=== PATIENT | male | born 1975 | race Caucasian/White ===

== ENCOUNTER 2019-03-15 21:33 | Inpatient (IN) ==
[2019-03-15] MEDS ORDERED: DUONEB (A & A) INH ONE (21:56)
[2019-03-15] MEDS ORDERED: NS 1,000 ML IV ONE ×2 (21:56→23:35)
[2019-03-15] MEDS ORDERED: DECADRON IM ONE (21:56)
[2019-03-15 22:08] LABS: INFLUENZA A NEGATIVE (NEGATIVE); INFLUENZA B NEGATIVE (NEGATIVE)
[2019-03-15 22:31] LABS: BASO# 0.07 X1000 (0.0-0.2); BASO% 0.8 % (0.0-0.8); EOS# 0.14 X1000 (0.0-0.7); EOS% 1.5 % (0.0-10.0); HEMATOCRIT 43.7 % (42.0-52.0); HEMOGLOBIN 14.8 g/dL (14.0-18.0); IMM GRAN# 0.02 X1000 (0.0-0.04); IMM GRAN% 0.2 % (0.0-0.5); LYMPH# 2.64 X1000 (1.2-3.4); LYMPH% 29.2 % (20.5-51.1); MCH 27.2 PG (27-31); MCHC 33.9 g/dL (33-37); MCV 80.2 FL (81-99); MONO# 0.99 X1000 (0.11-0.59); MONO% 10.9 % (1.7-9.3); MPV 10.4 FL (7.4-10.4); NEUT# 5.19 X1000 (1.4-6.5); NEUT% 57.4 % (42.2-75.2); PLT 448 X1000 (130-400); RBC 5.45 XMIL (4.7-6.1); RDW 12.4 % (11.5-14.5); WBC 9.05 X1000 (4.8-10.8)
[2019-03-15 22:41] LABS: ESTIMATED GFR > 60
[2019-03-15 22:45] LABS: AGAP 18; ALBUMIN 4.1 g/dL (3.5-5.0); ALKALINE PHOSPHATASE 122 U/L (32-122); BUN 9 mg/dL (8-22); CALCIUM 10.1 mg/dL (8.8-10.2); CHLORIDE 86 mmol/L (98-107); COSMO 287; CREATININE 0.8 mg/dL (0.7-1.2); GOT 15 U/L (10-34); GPT 17 U/L (10-44); POTASSIUM 4.6 mmol/L (3.5-5.1); SODIUM 127 mmol/L (136-145); TCO2 23 mmol/L (25-35); TOTAL PROTEIN 8.2 g/dL (6.3-8.3)
[2019-03-15 22:58] LABS: GLUCOSE 703 mg/dL (70-104)
[2019-03-15] MEDS ORDERED: ZOFRAN IV PRN (23:35)
[2019-03-15] MEDS ORDERED: TYLENOL PO PRN (23:35)
[2019-03-15] MEDS ORDERED: TORADOL IV PRN (23:35)
[2019-03-15 23:45] LABS: URINE SOURCE CLEAN CATCH
[2019-03-15 23:49] LABS: BILIRUBIN URINE NEGATIVE (NEGATIVE); BLOOD URINE NEGATIVE (NEGATIVE); COLOR STRAW; GLUCOSE URINE >1000 mg/dL (NEGATIVE); KETONE URINE NEGATIVE (NEGATIVE); LEUKOCYTES URINE NEGATIVE (NEGATIVE); NITRITE URINE NEGATIVE (NEGATIVE); PROTEIN URINE NEGATIVE (NEGATIVE); SP GRAVITY URINE 1.033; TURBIDITY URINE CLEAR (CLEAR); UROBILINOGEN URINE NORMAL (NORMAL)
[2019-03-15 23:50] LABS: UR EPITHELIAL CELLS <10 /HPF (<10); URINE BACTERIA NEGATIVE /HPF; URINE RBC <10 /HPF (<10); URINE WBC <10 /HPF (<10)
[2019-03-16] MEDS: HUMULIN R (PARKWAY) 100 UNITS in NS 100 ML IV SCH ×4 (00:06→02:33)
--- NOTE | 2019-03-16 00:11 | PROVIDER DOCUMENTATION ---
This chart was entered by Stephanie Adams Scribe, acting as scribe for Avery Fox MD. HPI-General Adult - General Chief Complaint: Cold Symptoms Stated Complaint: FLU LIKE SYMPTOMS Time Seen by Provider: 03/15/19 21:42 Source: patient Allergies/Adverse Reactions: Patient Allergies Allergy/AdvReac Type Severity Reaction Status Date / Time meperidine HCl * Allergy Mild ITCHING Verified 03/15/19 21:40 [From Demerol] promethazine HCl * Allergy Mild ITCHING Verified 03/15/19 21:40 [From Phenergan] Home Medications: Home Medication List Medication Instructions Recorded Confirmed Last Taken Type Sertraline [Zoloft] 100 mg PO DAILY 06/30/13 01/15/18 01/16/18 History Atorvastatin Calcium 40 mg PO QHS 12/18/17 01/15/18 01/16/18 History Bupropion HCl [Bupropion HCl Sr] 150 mg PO DAILY 12/18/17 01/15/18 01/16/18 History Ergocalciferol (Vitamin D2) 50,000 unit PO Q7D 12/18/17 01/15/18 01/16/18 History [Vitamin D2] Gabapentin 800 mg PO TID@0900,1500,2100 12/18/17 01/15/18 01/16/18 History Icosapent Ethyl [Vascepa] 2 g PO BID CC 12/18/17 01/15/18 01/16/18 History Pantoprazole Sodium 40 mg PO DAILY@0700 12/18/17 01/15/18 01/16/18 History Insulin Glargine [Basaglar] 50 unit SUBQ BID #1 insuln.pen 12/21/17 01/15/18 01/16/18 Rx Insulin Regular, Human [Humulin R] 0 unit SQ DIRECTED 01/15/18 01/15/1802/23 History Metformin HCl 2 tab PO BID 01/15/18 01/15/18 01/16/18 History Testosterone Enanthate 200 mg IM Q7D 01/15/18 01/15/18 01/16/18 History Docusate Sodium [Colace] 100 mg PO BID #30 capsule 01/17/18 Unknown Rx Hydrocodone/Acetaminophen [[place] 1 each PO Q6H PRN #20 tablet 01/17/18 Unknown Rx 7.5-325 Tablet] Ondansetron HCl [Zofran] 4 mg PO Q4H PRN #10 tablet 01/17/18 Unknown Rx - History of Present Illness -Gen Adult Nature of Presenting Problems: Pt is a 43 yom who presents to the ED w/ URI symptoms. Pt states that his sym ptoms began 1mo ago. Pt reports cough, sinus congestion w/ headache, and generalized weakness. Pt reports diabetes and states that he stopped visiting his PCP 6 months ago. Pt occasionally takes his insulin or checks his sugar. Pt states that his sugar was 300-400 last time he checked it(a month ago). Pt denies any other symptoms. Location of Pain/Injury: reports: head (sinus pressure), generalized (weakness) Pain Radiation: reports: no radiation Quality of Pain: reports: aching Severity: reports: mild Onset/Duration: reports: other (1 mo ago) Timing: reports: still present Context/Activities at Onset: reports: none Modifying Factors: improves with: nothing Associated Symptoms: reports: cough, headaches, sinus congestion/drainage, weakness Similar Symptoms Previously?: No Recently seen or treated by another doctor?: No - Diabetes Related Context Context: reports: other (blood sugar was 300-400 last time pt checked.) Review of Systems - Adult - REVIEW OF SYSTEMS - ADULT Constitutional: reports: see HPI Eyes: reports: no symptoms reported Ears, Nose, Mouth & Throat: reports: see HPI, sinus problem, other (congestion) Cardiovascular: reports: no symptoms reported Respiratory: reports: cough Gastrointestinal: reports: no symptoms reported Genitourinary: reports: no symptoms reported Musculoskeletal: reports: no symptoms reported Integumentary: reports: no symptoms reported Neurological: reports: see HPI, headache/migraines Psychiatric: reports: no symptoms reported Endocrine: reports: no symptoms reported Hematologic/Lymphatic: reports: no symptoms reported Allergic/Immunologic: reports: no symptoms reported All Other Systems: Reviewed and Negative Past History - Adult - PAST MEDICAL HISTORY-ADULT Review of Records: reports: Old Records Reviewed, Nursing Assessment Review, Medications Reviewed, Social history reviewed & non-contributory. Major Childhood Illnesses: reports: denies history Cardiovascular: reports: HTN, hyperlipidemia Respiratory: reports: denies history Gastrointestinal: reports: denies history Obstetrical/Gynecological: reports: denies history Genitourinary: reports: denies history Musculoskeletal: reports: chronic pain, neck/back injury Neurological: reports: denies history Psychiatric: reports: anxiety Endocrine/Immune: reports: Diabetes Diabetes Type: Type 2 Diabetes controlled by:: Insulin Dependent Other Conditions: reports: denies history - PRIOR SURGERIES/PROCEDURES Surgical/Procedure History: reports: reviewed, not pertinent - IMMUNIZATION STATUS Childhood Immunizations: See Nurse Assessment Flu Vaccine: See Nurse Assessment - FAMILY HISTORY Family History: reviewed, not pertinent - SOCIAL HISTORY Smoking: cigarettes, greater than 1 pack/day Provider spent 3-5 mins advising pt. on dangers of tobacco.: Discussed manners to quit use, and f/u contacts for add'l counseling. Substance Use: denies Living Situation: family Physical Exam-General - PHYSICAL EXAM-ADULT Initial Vital Signs Reviewed: Yes - CONSTITUTIONAL General Appearance: alert - EYES Eyes: PERRL/EOMI, pink conjunctivae. negative: sclera injected, scleral icterus - HEAD, EARS, NOSE, MOUTH & THROAT HENMT: normocephalic/atraumatic, moist mucous membranes - NECK Neck: non-tender, full range of motion, supple, normal inspection - RESPIRATORY Respiratory: chest non-tender, lungs clear, normal breath sounds. negative: crackles, wheezing - CARDIOVASCULAR Cardiovascular: normal peripheral pulses, regular rate, rhythm, no edema, no gallop, no JVD, no murmur. negative: bradycardia, tachycardia - GASTROINTESTINAL (ABDOMEN) Abdominal Exam: normal bowel sounds, non tender, soft. negative: guarding, rebound, tenderness - LYMPHATIC Lymphatic: no adenopathy - MUSCULOSKELETAL Back Exam: normal inspection, no CVA tenderness, no vertebral tenderness Extremity: normal range of motion, non-tender, normal inspection - SKIN Integumentary: normal color, normal turgor, warm/dry. negative: ecchymosis, erythema - NEUROLOGIC Neurologic: grossly normal - PSYCHIATRIC Psych/Mental Status: normal mood/affect, normal thought content, normal thought process, oriented x 3 Progress - PLAN OF CARE/RESULTS Progress/Plan/Lab Results: Vital Signs - 8 hr 03/15/19 21:36 Temperature 98.3 F Pulse Rate 118 H Respiratory Rate 18 Blood Pressure 148/93 O2 Sat by Pulse Oximetry 99 Orders Category Date Time Status CHEST-2 VIEWS [RAD] Stat Exams 03/15/19 21:50 Ordered CBC WITH ELECTRONIC DIFF [HEME] Stat Lab 03/15/19 21:47 Uncollected COMPREHENSIVE METABOLIC PANEL [CHEM] Stat Lab 03/15/19 21:[address] Stat Lab 03/15/19 21:40 Received Result Diagrams: 03/15/19 21:57 03/15/19 21:57 - CONSULTS/PCP/HOSPITALIST Notification #1 *Consult/PCP/Hospitalist*: Dr. Gee Hospitalist Time Discussed: 23:35 Reason/Comments: Discussed [place] [facility] [place] [facility] [place] Consult Disposition: Admit (Dr. Gee accepted admission) Departure - Departure Date of Disposition Decision: 03/16/19 Time of Disposition Decision: 00:10 DIAGNOSIS: DKA (diabetic ketoacidoses) Qualifiers: Diabetes mellitus type: type 2 Diabetes mellitus complication detail: without coma Qualified Code(s): E11.10 - Type 2 diabetes mellitus with ketoacidosis without coma Disposition: ADMITTED INPATIENT 09 Certified Medical Emergency: Emergent Condition: Critical Referrals and Follow-Ups: None,PCP [Primary Care Provider] - - Critical Care Note This patient required my direct & personal management of CC.: Yes Total Time (mins): 38 Critical Care Statement: This patient required my direct personal management to treat or rule out processes, the absence of which, could potentiallly result in sudden, clinically significant life or limb threatening deterioration. Attestation - Physician/ MARI Attestation Patient care was provided by Advanced Practice Provider:: No The physician spent face to face time with patient:: Yes Advanced Practice Provider documentation review:: Supervising physician onsite and consulted in the evaluation and care of this patient. The physician did have a face to face encounter with the patient. This chart was documented by the indicated scribe, (Stephanie Adams Scribe) and accurately reflects the services I performed and decisions made by me, Avery Fox MD, as attested by the provider's signature.
[2019-03-16 00:25] LABS: PH URINE 6.5
[2019-03-16] MEDS: MORPHINE IV PRN ×2 (00:27→05:05)
[2019-03-16 01:23] LABS: HEMOGLOBIN A1C 13.5 % (4.8-6.0)
[2019-03-16 01:48] LABS: AGAP 17; CHLORIDE 95 mmol/L (98-107); POTASSIUM 4.3 mmol/L (3.5-5.1); SODIUM 134 mmol/L (136-145); TCO2 22 mmol/L (25-35)
[2019-03-16] MEDS ORDERED: D5 1/2 NS 1,000 ML IV SCH (02:30)
[2019-03-16] MEDS ORDERED: MAGNESIUM SULFATE 2 GM/S.W.I. 2 GM/50 ML IVPB IV PRN (02:34)
[2019-03-16] MEDS ORDERED: HUMULIN R 100 UNIT in NS 100 ML IV SCH (02:34)
[2019-03-16] MEDS ORDERED: POTASSIUM CHLORIDE 40 MEQ/SWI 40 MEQ/100 ML IVPB IV PRN (02:34)
[2019-03-16] MEDS ORDERED: POTASSIUM CHLORIDE 10 MEQ in 1/2 NS 1,000 ML IV SCH (02:34)
[2019-03-16] MEDS ORDERED: POTASSIUM CHLORIDE 20 MEQ/SWI 20 MEQ/100 ML IVPB IV PRN (02:34)
[2019-03-16] MEDS ORDERED: D5 1/2 NS + KCL 10 MEQ 1,000 ML IV PRN (02:34)
[2019-03-16] MEDS ORDERED: POTASSIUM CHLORIDE 20% LIQUID PO PRN (02:34)
[2019-03-16] MEDS ORDERED: D50W SYRINGE IV PRN (02:34)
[2019-03-16 02:45] LABS: BUN 10 mg/dL (8-22); COSMO 282; CREATININE 0.7 mg/dL (0.7-1.2); GLUCOSE 371 mg/dL (70-104)
[2019-03-16 02:48] LABS: ESTIMATED GFR > 60
[2019-03-16 03:42] LABS: CHOLESTEROL 224 mg/dL (0-200); HDL 35 mg/dL (35-55); PHOSPHORUS 3.5 mg/dL (2.7-4.5); TRIGLYCERIDES 514 mg/dL (39-160)
[2019-03-16] MEDS: POTASSIUM CHLORIDE 10% LIQUID PO PRN ×2 (04:00→08:16)
[2019-03-16 04:26] LABS: ALLEN TEST YES; BE -1.2 mmoll (-3.0-3.0); BLOOD TYPE ARTERIAL; HCO3-(ACT) 23.9 mmoll (20.0-26.0); O2HB 93.5 % (95.0-99.0); PCO2(98.6) 45 mmHg (35-45); PO2(98.6) 76 mmHg (60-100); SAMPLE BLOOD; SAO2 96.2 % (95.0-100.0); THB 15.2 g/dL (11.5-17.4); pH(98.6) 7.35 (7.35-7.45)
[2019-03-16 04:27] LABS: MODALITY ROOM AIR
--- NOTE | 2019-03-16 05:36 | Diag Imaging Result Doc PS360 ---
EXAM: CHEST-2 VIEWS HISTORY: Cough; SOB TECHNIQUE: Two views COMPARISON: 12/18/2018 FINDINGS: The lungs are well expanded. The heart is not enlarged. The vessels are not distended. There are no infiltrates. No pleural effusions. IMPRESSION: No pneumonia Electronically signed by Awais Guillen 03/16/2019 5:33 AM
[2019-03-16] MEDS ORDERED: PROTONIX PO SCH (07:00)
--- NOTE | 2019-03-16 07:11 | HISTORY AND PHYSICAL ---
CHIEF COMPLAINT: Cold symptoms, flu symptoms. HISTORY OF PRESENT ILLNESS: This is a 43-year-old male who has a history of diabetes mellitus type 2, hypertension, chronic pain, gastroparesis, diabetic neuropathy, and hyperlipidemia. He came into the emergency room complaining of upper respiratory symptoms. He stated they started around one month ago. He states he has had a headache, generalized weakness, cough, and sinus congestion. He states that he stopped visiting his primary care physician six months ago, that he was let go from the Dr. Luis Segovia's office because they told him he was too difficult of a patient. He states that he has contacted Medicare twice. Those physicians have gotten his charts from Dr. Segovia and then also decided that he was too difficult of a patient and then not take him. At any rate, his blood sugars were elevated in the 700s. He states that he has been halving his insulin. He seems fairly medically noncompliant. However, I am unsure if this was because he was let go from his physician or just generalized medical noncompliance. At any rate he will be admitted to the ICU for further evaluation and treatment. PAST MEDICAL HISTORY: See HPI. PREVIOUS SURGICAL HISTORY: Right hand fracture repair, left shoulder surgery, pilonidal cyst removal. SOCIAL HISTORY: He smokes half a pack of cigarettes per day and has since he was 14. No alcohol. No illicit drugs. FAMILY HISTORY: Positive for diabetes mellitus. ALLERGIES: Meperidine and promethazine. HOME MEDICATIONS: Denies having home medications at this time. Please see HPI. REVIEW OF SYSTEMS: A 14-point review of systems was conducted with the patient. Pertinent positives are listed above in the HPI. All other systems reviewed and found to be negative. PHYSICAL EXAMINATION: VITAL SIGNS: Temperature 97, pulse 105, respirations 18, blood pressure 99/80, and oxygen saturation is 98% on room air. GENERAL: A chronically ill-appearing 43-year-old male lying on the ER stretcher, alert and oriented x3, in no acute distress. HEENT: The head is atraumatic an normocephalic. The pupils are equal, round, and reactive to light. The extraocular eye movement is intact. The sclerae are nonicteric. The conjunctivae are pink. The oral mucosa is dry. NECK: Supple. No JVD. No thyromegaly. The trachea is midline. No cervical lymphadenopathy. CARDIAC: S1, S2 appreciated. No murmurs, gallops, rubs. LUNGS: Clear to auscultation bilaterally. No rhonchi, wheezes, or rales. Symmetric rise and fall with respirations. ABDOMEN: Soft, nondistended, nontender. Bowel sounds present in all four quadrants. Normoactive. No pulsatile masses. No organomegaly. EXTREMITIES: Diabetic foot ulcers noted on the bilateral shins. They are clean, dry, and intact. No signs of infection. They are all dry and healing. 1+ pedal pulses bilaterally. GENITOURINARY: No bladder distention, patient voids. NEUROLOGICAL: Alert and oriented x3. No focal motor deficits. Otherwise nonfocal examination. LABORATORY DATA: White blood cell count within normal limits. ABG within normal limits. Sodium 127, potassium 4.6, chloride 86, carbon dioxide 23, BUN 9, creatinine 0.8, glucose 703. Hemoglobin A1c is 13.5. Urine glucose greater than 1000. Rapid flu was negative. ASSESSMENT: 1. Diabetes mellitus type 2 with hyperglycemia. The patient may have been on the verge of being in diabetic ketoacidosis (DKA), however, he had not converted. 2. Medical noncompliance. 3. Fluid volume depletion. 4. Diabetic gastroparesis. 5. Diabetic neuropathy. PLAN: Admit the patient to the ICU. He can likely be discharged to the medical floor later today. Prisoner Classification Interviewer consult to help the patient try to obtain a new primary care provider. Diabetic diet. We will place the patient on DKA protocol until his anion gap closes, however, he is not acidotic. Check a lipid profile. Continue antihyperlipidemia medication that the patient was on. I believe it was atorvastatin. Further recommendations based on the patient's clinical course. Dictated by ESTHELA Flores for Davi Gee MD I have performed a face to face diagnostic evaluation. Labs/ Xray- reviewed, Exam- Chest- clear, CV- regular. A/P- Early DKA- Admit, insulin drip for DKA . Dr. Gee cc: ESTHELA Flores MD [facility]
--- NOTE | 2019-03-16 07:16 | EKG Report ---
Test Performed on : 03/16/2019 06:59:38 AM Test Reason : dka Blood Pressure : / mmHG Vent. Rate : 107 BPM Atrial Rate : 107 BPM P-R Int : 146 ms QRS Dur : 098 ms QT Int : 332 ms P-R-T Axes : 046 209 044 degrees QTc Int : 443 ms Sinus tachycardia. Right superior axis deviation Possible Anterior infarct , age undetermined Abnormal ECG When compared with ECG of 19-DEC-2017 10:29, No significant change was found Confirmed by Leah NAVAS, Karan ([id number]) on 03/16/2019 8:32:40 AM
[2019-03-16 07:27] LABS: AGAP 9; BUN 10 mg/dL (8-22); CHLORIDE 94 mmol/L (98-107); COSMO 277; CREATININE 0.8 mg/dL (0.7-1.2); ESTIMATED GFR > 60; PHOSPHORUS 1.6 mg/dL (2.7-4.5); POTASSIUM 4.2 mmol/L (3.5-5.1); SODIUM 130 mmol/L (136-145); TCO2 27 mmol/L (25-35)
[2019-03-16 07:49] LABS: GLUCOSE 404 mg/dL (70-104)
[2019-03-16] MEDS ORDERED: ICOSAPENT ETHYL 2 GM PO SCH (08:00)
[2019-03-16] MEDS ORDERED: FLEXERIL PO SCH (09:00)
[2019-03-16] MEDS ORDERED: VITAMIN D PO SCH (09:00)
[2019-03-16] MEDS ORDERED: VALTREX PO SCH (09:00)
[2019-03-16] MEDS ORDERED: REGLAN PO SCH (09:00)
[2019-03-16] MEDS ORDERED: ZOLOFT PO SCH (09:00)
[2019-03-16] MEDS ORDERED: LYRICA PO SCH (09:00)
[2019-03-16 10:37] VITALS: BP 116/78
[2019-03-16] MEDS ORDERED: LIPITOR PO SCH (21:00)
--- NOTE | 2019-03-17 10:33 | DISCHARGE SUMMARY ---
ADMISSION DATE: 03/16/2019 DISCHARGE DATE: 03/16/2019 DISCHARGE DISPOSITION: Likely home. The patient left against medical advice. DISCHARGE CONDITION: The patient was hyperglycemic requiring high dose of insulin drip as high as 28 units per hour, requiring high doses of insulin drip intravenously. I explained to the patient about need for better diabetes management. However, he is frustrated with medical care outpatient. He is frustrated with not being able to see a specialist and uncontrolled diabetes. He understood the risk associated with going home with uncontrolled diabetes including worsening of diabetes, developing diabetic ketoacidosis, worsening of wounds, developing sepsis with the wounds and potentially . Despite that, he decided to go against medical advice. Before I could provide him any written instructions or extended support through [facility] [employer] team, he pulled out his cardiac exercise specialist and other devices, and left the ICU. His significant other is at bedside who was emotional about the entire proceedings, and was trying to persuade him to stay back in the hospital. However, he did not listen. DISCHARGE DIAGNOSES: 1. Uncontrolled insulin-dependent diabetes mellitus with hyperglycemia, elevated anion gap with normal bicarbonate without diabetic ketoacidosis. 2. Hemoglobin A1c of 13.5. 3. Right medial leg wound since about 2 weeks. 4. History of diabetic neuropathy. 5. History of chronic pain. 6. Essential hypertension. 7. Hyperlipidemia. DISCHARGE MEDICATIONS: I could not reconcile his medications appropriately as he left before I could provide him written instructions based on the history provided to me by the patient. He was supposed to take long-acting insulin either glargine or Tresiba 100 units every day. He was also taking 1.8 units of Victoza every day and metformin 1000 mg b.i.d. VITALS: At the time of discharge, his temperature was 98 degrees, pulse 116, respiratory 24, and blood pressure 116/78. He was saturating 97% on room air. PHYSICAL EXAMINATION: Oral cavity was moist. Lungs: Air entry bilaterally equal. No wheezing, rhonchi or crackles. Heart: S1, S2 normal. No murmur or gallop. Abdomen: Soft, nontender. Extremities: No lower extremity edema. He has intact dorsalis pedis pulses. He has a superficial wound affecting right medial leg without any pus. He has intact dorsalis pedis pulses. Neurologic: He was alert and oriented x3. He was agitated. SIGNIFICANT LABORATORY: His hemoglobin is 14.8 and platelet 448,000, pH 7.35, PO2 76, pCO2 45, and bicarbonate 23. On presentation, his sodium is 127, chloride 87, BUN 9, and creatinine 0.8. His blood glucose is 703. His hemoglobin A1c is 13.5. His magnesium is 1.9. Micro blood culture did not have any growth so far. IMAGING: Chest x-ray on presentation did not have any pneumonia. HOSPITAL COURSE SUMMARY: Mr. Yousif is a 43 year old man with past medical history of uncontrolled insulin-dependent diabetes mellitus type 2, who presented initially on 03/15/2019 at nighttime with flu-like symptoms of sinus congestion, headache, and generalized weakness, which has been ongoing for several days. In the emergency room, hemodynamically was stable except sinus tachycardia. However, his blood glucose was found to be in excess of 700 so he was advised to have insulin drip on ICU admission. Overnight, he was started on DKA protocol. Overnight, he was started on insulin drip and in the morning time his blood sugars were slightly getting better under control requiring high amount of IV insulin. At the time of my evaluation, the patient appeared frustrated because of the fact that he was not able to find a good outpatient provider, and then a specialist was not able to take care of him properly, and had issues with pre authorization. He states that he had ran out of lot of his medications because he was not able to get in touch with a good doctor. During my encounter, he was abusive and using curse words for different providers he had seen in the past. I tried to explain to him about the challenging nature of his diabetes, and need for better control. However, he was not willing to understand. He in fact started pulling out his telemetry cords and IV lines, and wanted to go against medical advice. The patient's significant other partner was at bedside, and I also explained to her about the nature of his challenging diabetes, and need for ICU monitoring. She understood it, and she was trying to explain to the patient about being in the hospital to get better control of his multiple health conditions. However, despite understanding the risk associated with it, the patient had decided to go against medical advice. The patient did not wait to provide proper discharge instructions. TIME SPENT: More than 30 minutes time was spent in taking care of this patient in ICU, and explaining to him about the nature of his diabetes, long-term management plan, and possible complications. cc: Earnest Lambert MD MTDD
== END 2019-03-16 10:17 | disposition left against medical advice (07) | DRG 638 ==
LOC: P.ED 21:33 → ICU 03-16 00:45 → SUATTDRO 03-16 00:45
PROVIDERS: ATTEND Internal Medicine